=== PATIENT | female | born 1990 | race Caucasian/White ===

== ENCOUNTER 2017-04-04 09:15 | Emergency (ER) | payer OTHER ==
[~2017-04-04] VITALS: Ht 160 cm; Wt 86.0 kg
[2017-04-04 13:00] VITALS: BP 137/78
== END 2017-04-04 13:06 | disposition home or self-care (01) ==
LOC: ER 09:44
DX: S80.812A Abrasion, left lower leg, initial encounter (principal); L03.116 Cellulitis of left lower limb; W01.0XXA Fall on same level from slipping, tripping and stumbling without subsequent striking against object, initial encounter; Y93.66 Activity, soccer; Y92.89 Other specified places as the place of occurrence of the external cause; Y99.8 Other external cause status
CPT/HCPCS: 99283

== ENCOUNTER 2017-09-16 12:34 | Emergency (ER) | payer OTHER ==
[~2017-09-16] VITALS: Ht 160 cm; Wt 89.1 kg
[2017-09-16 13:25] LABS: CLARITY URINE CLEAR (CLEAR); COLOR URINE YELLOW (YELLOW); KETONES URINE TRACE (NEGATIVE); LEUKOCYTE ESTERASE URINE TRACE (NEGATIVE); NITRITE URINE NEGATIVE (NEGATIVE); OCCULT BLOOD URINE 3+ (NEGATIVE); PH URINE 5.5 (4.5-8.0); PROTEIN URINE NEGATIVE (NEGATIVE); SPECIFIC GRAVITY URINE 1.029 (1.005-1.030)
[2017-09-16 15:17] LABS: BASOPHILS % 0.6 % (0.0-2.0); EOSINOPHILS % 1.5 % (0.0-5.0); HEMATOCRIT. 41.5 % (36.0-48.0); HEMOGLOBIN. 14.3 g/dL (12.0-16.0); LYMPHOCYTES % 33.5 % (20.0-50.0); MEAN CORPUSCULAR HEMOGLOBIN 30.8 pg (28.0-32.0); MEAN CORPUSCULAR VOLUME 89.1 fL (81.0-99.0); MEAN PLATELET VOLUME 9.2 fl (7.4-10.4); MONOCYTES % 6.1 % (2.0-8.0); NEUTROPHILS % 58.3 % (40.0-76.0); PLATELET 244 x1000/uL (130-400); RED BLOOD CELL COUNT 4.66 mill/uL (4.2-5.4); RED CELL DISTRIBUTION WIDTH 13.1 % (11.6-14.6)
[2017-09-16 15:22] LABS: CHLORIDE 107 mEq/L (98-107)
[2017-09-16 17:30] VITALS: BP 122/82
== END 2017-09-16 18:25 | disposition home or self-care (01) ==
LOC: ER 12:34
DX: O20.0 Threatened abortion (principal); Z3A.01 Less than 8 weeks gestation of pregnancy
CPT/HCPCS: 36415; 76830; 76856; 80053; 81003; 81025; 84702; 85025; 86850; 86900; 99285

== ENCOUNTER 2018-11-11 19:18 | Emergency (ER) | payer MEDICAID, OTHER ==
[~2018-11-11] VITALS: Ht 160 cm; Wt 87.0 kg
[2018-11-11 20:32] LABS: CLARITY URINE CLEAR (CLEAR); COLOR URINE YELLOW (YELLOW); KETONES URINE TRACE (NEGATIVE); LEUKOCYTE ESTERASE URINE NEGATIVE (NEGATIVE); NITRITE URINE NEGATIVE (NEGATIVE); OCCULT BLOOD URINE NEGATIVE (NEGATIVE); PROTEIN URINE NEGATIVE (NEGATIVE); SPECIFIC GRAVITY URINE 1.032 (1.005-1.030)
[2018-11-11] MEDS ORDERED: KETOROLAC 30MG/ML VIAL IM ONE (21:15)
[2018-11-11] MEDS ORDERED: METHOCARBAMOL 500MG TABLET PO ONE (22:00)
[2018-11-11 23:24] VITALS: BP 138/84
== END 2018-11-11 23:25 | disposition home or self-care (01) ==
LOC: ER 19:18
DX: M54.5 Low back pain (principal); Z98.890 Other specified postprocedural states
CPT/HCPCS: 81003; 81025; 96372; 99283; J1885

== ENCOUNTER 2019-01-07 09:57 | Emergency (ER) | payer MEDICAID ==
[~2019-01-07] VITALS: Ht 160 cm; Wt 84.0 kg
[2019-01-07 17:20] LABS: HCG SCREEN POSITIVE
[2019-01-07 17:21] LABS: CHLORIDE 106 mEq/L (98-107)
[2019-01-07 17:22] LABS: BASOPHILS % 0.3 % (0.0-2.0); EOSINOPHILS % 1.6 % (0.0-5.0); HEMATOCRIT. 41.2 % (36.0-48.0); HEMOGLOBIN. 14.3 g/dL (12.0-16.0); LYMPHOCYTES % 35.3 % (20.0-50.0); MEAN CORPUSCULAR HEMOGLOBIN 31.5 pg (28.0-32.0); MEAN CORPUSCULAR VOLUME 90.9 fL (81.0-99.0); MEAN PLATELET VOLUME 9.4 fl (7.4-10.4); MONOCYTES % 5.4 % (2.0-8.0); NEUTROPHILS % 57.4 % (40.0-76.0); PLATELET 218 x1000/uL (130-400); RED BLOOD CELL COUNT 4.53 mill/uL (4.2-5.4); RED CELL DISTRIBUTION WIDTH 13.1 % (11.6-14.6)
[2019-01-07 17:44] LABS: B-HCG QUANTITATIVE 3940 mIU/mL (<3)
[2019-01-07 20:13] LABS: CLARITY URINE CLEAR (CLEAR); COLOR URINE YELLOW (YELLOW); KETONES URINE 2+ (NEGATIVE); LEUKOCYTE ESTERASE URINE NEGATIVE (NEGATIVE); NITRITE URINE NEGATIVE (NEGATIVE); OCCULT BLOOD URINE NEGATIVE (NEGATIVE); PH URINE 6.5 (4.5-8.0); PROTEIN URINE NEGATIVE (NEGATIVE); SPECIFIC GRAVITY URINE 1.023 (1.005-1.030)
[2019-01-07 20:45] VITALS: BP 126/71
== END 2019-01-07 20:45 | disposition home or self-care (01) ==
LOC: ER 09:57
DX: O20.0 Threatened abortion (principal); Z3A.01 Less than 8 weeks gestation of pregnancy; Z98.890 Other specified postprocedural states
CPT/HCPCS: 36415; 76801; 81003; 81025; 84702; 84703; 86850; 86900; 99284

== ENCOUNTER 2021-11-19 15:46 | Emergency (ER) | payer MEDICAID, OTHER ==
[~2021-11-19] VITALS: Ht 160 cm; Wt 82.0 kg
[2021-11-19 16:05] VITALS: BP 156/95
[2021-11-19] MEDS ORDERED: CIPR2.5D13 LEFTEYE (17:26)
== END 2021-11-19 17:51 | disposition home or self-care (01) ==
LOC: ER 15:46
DX: H10.023 Other mucopurulent conjunctivitis, bilateral (principal); Z98.890 Other specified postprocedural states
CPT/HCPCS: 99283

== ENCOUNTER 2023-10-14 22:46 | Emergency (ER) | payer OTHER ==
[~2023-10-14] VITALS: Ht 160 cm; Wt 100.0 kg
[~2023-10-14 22:46] MED LIST: CIPR2.5D20 LEFTEYE
[2023-10-14 23:18] VITALS: O2SAT 97
[2023-10-15] MEDS: KETOROLAC 15MG/ML VIAL IM ONE (01:40)
[2023-10-15 01:45] VITALS: BP 111/73; PULSE 86; RESP 18; TEMP 98
== END 2023-10-15 01:46 | disposition home or self-care (01) ==
LOC: ER 22:46
DX: M25.561 Pain in right knee (principal)
CPT/HCPCS: 73562; 99283; 96372; J1885; Z7610; L1830; 29505

== ENCOUNTER 2025-01-10 17:14 | Emergency (ER) | payer SELFPAY ==
[~2025-01-10] VITALS: Ht 170.2 cm; Wt 91.0 kg
[2025-01-10 17:19] VITALS: TEMP 37.1; O2SAT 98
[2025-01-10] MEDS: OXYCODONE HCL/ACETAMINOPHEN 5/325MG TABLET PO STA (19:08)
[2025-01-10] MEDS ORDERED: CELE100C MT (19:12)
[2025-01-10 19:26] VITALS: BP 118/64; PULSE 62; RESP 14; O2SAT 100
== END 2025-01-10 20:12 | disposition home or self-care (01) ==
LOC: ER 17:14
DX: S89.92XA Unspecified injury of left lower leg, initial encounter (principal); X58.XXXA Exposure to other specified factors, initial encounter; Y93.89 Activity, other specified; Y92.89 Other specified places as the place of occurrence of the external cause; Y99.8 Other external cause status
CPT/HCPCS: 29505; 73562; 99283